=== PATIENT | male | born 1950 | race Caucasian/White ===

== ENCOUNTER 2024-08-15 07:13 | Day surgery (SDC) | payer MEDICARE ==
[2024-08-11 14:51] LABS: BASOPHILS # (AUTO) 0.1 X10'3 (0-0.2); BASOPHILS % (AUTO) 1.3 % (0-1); EOSINOPHILS # (AUTO) 0.2 X10'3 (0-0.9); EOSINOPHILS % (AUTO) 3.1 % (0-6); LYMPHOCYTES # (AUTO) 1.6 X10'3 (1.1-4.8); LYMPHOCYTES % (AUTO) 19.6 % (21-51); MEAN CORPUSCULAR HEMOGLOBIN 33.1 PG (27.0-31.0); MEAN CORPUSCULAR HGB CONC 34.3 g/dL (33.0-36.5); MEAN CORPUSCULAR VOLUME 96.3 FL (78-98); MEAN PLATELET VOLUME 7.1 FL (7.4-10.4); MONOCYTES # (AUTO) 0.7 X10'3 (0-0.9); MONOCYTES % (AUTO) 9.2 % (2-12); NEUTROPHILS # (AUTO) 5.3 X10'3 (1.8-7.7); NEUTROPHILS % (AUTO) 66.8 % (42-75); PRE OP HEMATOCRIT 41.2 % (42.0-52.0); PRE OP HEMOGLOBIN 14.2 g/dL (14.0-17.9); PRE OP PLATELET COUNT 384 X10'3 (140-440); PRE OP WHITE BLOOD COUNT 7.9 10'3 (4.8-10.8); RED BLOOD COUNT 4.28 X10'6 (4.70-6.10); RED CELL DISTRIBUTION WIDTH 13.7 % (11.5-14.5)
[2024-08-11 14:55] LABS: ALBUMIN 3.8 G/DL (3.4-5.0); ALBUMIN/GLOBULIN RATIO 0.9 (1.1-1.5); ALKALINE PHOSPHATASE 41 IU/L (46-116); BLOOD UREA NITROGEN 20 MG/DL (7-18); BUN/CREATININE RATIO 14.2 (10.0-20.0); CHLORIDE 107 MMOL/L (99-107); CREATININE 1.41 MG/DL (0.60-1.10); PRE OP ALT 36 U/L (30-65); PRE OP ANION GAP 9 (8-16); PRE OP AST 16 U/L (10-37); PRE OP BILIRUB, TOTAL 0.3 MG/DL (0.0-1.0); PRE OP GLUCOSE 186 MG/DL (70-104); PRE OP POTASSIUM 4.6 MMOL/L (3.4-5.1); PRE OP SODIUM 140 MMOL/L (135-145); TOTAL CARBON DIOXIDE 24.2 MMOL/L (24-32); eGFR 49 ML/MIN
[2024-08-15] VITALS (7 sets, daily range): BP systolic 115–154; BP diastolic 70–87; PULSE 51–70; RESP 14–18; TEMP 97.8; O2SAT 94–98
[~2024-08-15] VITALS: Ht 177.8 cm; Wt 94.6 kg
[2024-08-15] MEDS: ceFAZolin 2gm in dextrose, iso 50 ML IV ONE (05:30)
[2024-08-15] MEDS: DOCUMENT DATE & TIME OF BETA-BLOCKER PO ONE (05:30)
[~2024-08-15 07:13] MED LIST: AMLO-314 PO; IBUP-1984 PO; LISI40TA13 PO; METF-438 PO; METO-411 PO
[2024-08-15] MEDS: ringers solution, lacted 1,000 ML IV SCH (08:02)
[2024-08-15] MEDS: famotidine 20mg tablet PO ONE (08:02)
[2024-08-15] MEDS ORDERED: LIDOcaine 2% (20mg/ml) 5ml vial ONE ×2 (09:31)
[2024-08-15] MEDS ORDERED: BUPIVAcaine/PF 2.5mg/ml (0.25%) 10ml vial ONE ×2 (09:31→10:13)
[2024-08-15] MEDS ORDERED: LIDOcaine 1% 30ml preserv. free vial ONE (09:58)
[2024-08-15] MEDS ORDERED: fentaNYL/PF 50MCG/1 ML 2ML syringe ONE (10:07)
[2024-08-15] MEDS ORDERED: MIDAZolam 1 MG/ML 5ML VIAL ONE (10:07)
[2024-08-15] MEDS: BUPIVAcaine 0.25% w/Epi /PF 30ml vial IJ ONE (11:10)
[2024-08-15] MEDS ORDERED: morphine 2 MG/ML inj. syringe IV PRN (11:20)
[2024-08-15] MEDS ORDERED: proCHLORperazine 10 MG/2 ml inj IV PRN (11:20)
[2024-08-15] MEDS ORDERED: labetalol 20mg/4ml (5mg/ml) syringe IV PRN (11:20)
[2024-08-15] MEDS ORDERED: ondansetron/PF 4mg/2ml inj IV PRN (11:20)
[2024-08-15] MEDS ORDERED: meperidine/PF 25mg/ml syringe IV PRN ×3 (11:20)
[2024-08-15] MEDS ORDERED: ringers solution, lacted 1,000 ML IV SCH (11:20)
[2024-08-15] MEDS ORDERED: enalaprilat dihydrate 2.5mg/2ml vial IV PRN (11:20)
[2024-08-15] MEDS ORDERED: morphine 4 MG/ML inj SYRINge IV PRN (11:20)
[2024-08-15] MEDS ORDERED: acetaminophen 1,000mg/100ml IV 100 ML IV ONE (11:23)
[2024-08-15] MEDS: acetaminophen 1,000mg/100ml IV 100 ML IV SCH (11:24)
== END 2024-08-15 12:02 | disposition home or self-care (01) ==
LOC: PRE-OP 07:13
PROVIDERS: ATTEND Orthopaedic Surgery Hand Surgery
DX: G56.03 Carpal tunnel syndrome, bilateral upper limbs (principal); M65.332 Trigger finger, left middle finger; I10 Essential (primary) hypertension; I25.10 Atherosclerotic heart disease of native coronary artery without angina pectoris; E11.9 Type 2 diabetes mellitus without complications; Z79.84 Long term (current) use of oral hypoglycemic drugs; Z79.891 Long term (current) use of opiate analgesic; Z79.899 Other long term (current) drug therapy; Z95.5 Presence of coronary angioplasty implant and graft; Z98.890 Other specified postprocedural states; Z88.2 Allergy status to sulfonamides
CPT/HCPCS: 26055; 36415; 64721; 80053; 82948; 85025; A4215; A6449; J0131; J0690; J2003; J2250; J3010; J3490; J7030; J7120; Z7506; Z7508; Z7512; Z7610; S0020